=== PATIENT | female | born 1965 | race Caucasian/White ===

== ENCOUNTER 2016-04-25 21:19 | Inpatient (IN) | payer OTHER ==
[~2016-04-25] VITALS: Ht 165.1 cm; Wt 72.2 kg
[~2016-04-25 21:19] MED LIST: ACETAMINOPHEN W1 TA6 PO; AMOXICILLIN 50500 MG PO; BACTRIM DS 8001 TAB PO; CEFTIN PO; CEPHALEXIN500 M1 PO; CITALOPRAM40 MG PO; L-LYSINE1000 MG PO; LEXAPRO 10MG10 MG PO; LEXAPRO20 MG PO; LORTAB 5/500 501 TAB PO; LYSINYL500 MG PO; MIRTAZAPINE7.5 MG PO; MOTRIN 800800 MG/TAB PO; NASONEX SPRAY17 GM NS; NO HOME MEDICATIONS; NORCO 325 MG-7.1 TAB PO; PHENERGAN 25 TA25 MG PO; PHENERGAN W/CO120 ML PO; PHENERGAN25 MG RC; PREMARIN .3MG0.3 MG PO; PROVENTIL0.09 MG/A1 IH; TYLENOL 500MG500 MG PO; VALTREX 50500 MG/TAB PO; ZITHROMAX Z PA250 MG PO; ZYRTEC 10MG10 MG PO; [UNRECOGNIZED DRUG - OTHER]
[2016-04-25 22:02] VITALS: BP 111/59; PULSE 76; TEMP 98.4
[2016-04-25] MEDS ORDERED: CELEXA40 MG PO (22:16)
[2016-04-25] MEDS ORDERED: ZANTAC 7575 MG PO (22:17)
[2016-04-25] MEDS ORDERED: ASPIRIN E.C. 8181 MG PO (22:17)
[2016-04-25] MEDS ORDERED: VALTREX 50500 MG/TAB PO (22:18)
[2016-04-25] MEDS ORDERED: RESTORIL 77.5 MG/CAP (22:18)
[2016-04-25] MEDS ORDERED: CLARITIN 1010 MG/TAB PO (22:18)
[2016-04-25] MEDS ORDERED: MELAT3MGTAB (22:31)
[2016-04-26 00:36] LABS: B-TYPE NATRIURETIC PEPTIDE 98 pg/mL (0-125)
[2016-04-26 03:33] VITALS: BP 97/45; PULSE 81; TEMP 98.2
[2016-04-26 08:30] LABS: BASO % 0.4 % (0.0-2.0); EOS # 0.1 (0.0-0.7); GRAN # 2.4 (1.4-6.5); GRAN % 44.4 % (42.2-75.2); HEMOGLOBIN 12.5 g/dl (12.5-16.0); LYMPH # 2.3 (1.2-3.4); LYMPH % 42.9 % (20.0-51.0); MEAN CELL VOLUME 91 fl (80.0-100.0); MEAN CORPUSCULAR HEMOGLOBIN 31 pg (27.0-31.0); MEAN CORPUSCULAR HGB CONC 34 g/dl (33.0-37.0); MEAN PLATELET VOLUME 10.2 fl (7.4-10.4); MONO # 0.6 (0.1-0.6); MONO % 10.1 % (1.7-9.3); PLATELET COUNT 206 K/mm3 (130-400); RED BLOOD COUNT 4.05 M/mm3 (4.10-5.30); REDCELL DISTRIBUTION WIDTH-CV 11.9 % (11.5-14.5); WHITE BLOOD COUNT 5.5 K/mm3 (4.8-10.8)
[2016-04-26 08:56] VITALS: BP 104/50; PULSE 85; TEMP 97.6
[2016-04-26 09:08] LABS: ANION GAP 8 mmol/L (7-16); BLOOD UREA NITROGEN 11 mg/dL (7-17); C-REACTIVE PROTEIN 0.6 mg/dL (0.0-0.9); CALCIUM 9.8 mg/dL (8.4-10.2); CARBON DIOXIDE 30 mmol/L (22-30); CHLORIDE 104 mmol/L (98-107); GLUCOSE 91 mg/dL (74-106); POTASSIUM 3.7 mmol/L (3.4-5.0); SODIUM 141 mmol/L (137-145)
[2016-04-26 09:25] LABS: TROPONIN-I < 0.012 ng/mL (0.000-0.034)
[2016-04-26 09:48] LABS: CHOLESTEROL 189 mg/dL (120-200); HDL CHOLESTEROL 41 mg/dL; LDL CHOLESTEROL 119 mg/dL; TRIGLYCERIDE 147 mg/dL
[2016-04-26 09:50] LABS: ERYTHROCYTE SEDIMENTATION RATE 16 mm/hr (0-30)
[2016-04-26 17:25] VITALS: BP 104/46; PULSE 95
[2016-04-26 19:51] VITALS: BP 95/45; PULSE 95; TEMP 98.4
[2016-04-26 22:49] VITALS: BP 94/44; PULSE 87; TEMP 98.4
[2016-04-27 03:30] VITALS: BP 102/45; PULSE 78; TEMP 98.2
[2016-04-27 07:37] VITALS: BP 91/33; PULSE 90; TEMP 98.4
[2016-04-27 08:58] LABS: FACTOR V LEIDEN MUTATION B Negative (Negative)
[2016-04-27] MEDS ORDERED: PLAVIX 75MG TAB75 MG PO (10:51)
[2016-04-27] MEDS ORDERED: LIPITOR 40MG TA40 MG PO (11:00)
[2016-04-27] MEDS ORDERED: AMITRIPTYLINE H25 M1 PO (11:01)
[2016-04-27 23:01] LABS: ANA SCREEN with REFLEX Negative (Negative)
[2016-04-29] MEDS ORDERED: PLAVIX 75MG TAB75 MG PO (15:48)
[2016-04-29] MEDS ORDERED: LIPITOR 40MG TA40 MG PO (15:48)
== END 2016-04-27 15:07 | disposition home or self-care (01) | DRG 103 ==
LOC: MEDICAL 21:19
PROVIDERS: Internal Medicine
DX: G43.409 Hemiplegic migraine, not intractable, without status migrainosus (principal); R07.89 Other chest pain; E78.5 Hyperlipidemia, unspecified; Z86.73 Personal history of transient ischemic attack (TIA), and cerebral infarction without residual deficits; Z87.891 Personal history of nicotine dependence
CPT/HCPCS: 99232-AI; 99239; A4315; J1650

== ENCOUNTER 2016-12-01 07:58 | Outpatient (CLI) | payer OTHER ==
[~2016-12-01] VITALS: Ht 165.1 cm; Wt 71.8 kg
[~2016-12-01 07:58] MED LIST changes: +AMITRIPTYLINE H25 M1 PO; +ASPIRIN E.C. 8181 MG PO; +CELEXA40 MG PO; +CLARITIN 1010 MG/TAB PO; +LIPITOR 40MG TA40 MG PO; +MELAT3MGTAB; +PLAVIX 75MG TAB75 MG PO; +RESTORIL30 MG PO; +ZANTAC 150MG T150 MG PO
[2016-12-01] MEDS ORDERED: LIPITOR 10MG10 MG PO (08:13)
[2016-12-01] MEDS ORDERED: PLAVIX 75MG TAB75 MG PO (08:13)
[2016-12-01] MEDS ORDERED: ZANAFLEX2 MG PO (08:14)
[2016-12-01 08:20] VITALS: BP 107/65; PULSE 75; TEMP 97.9
== END 2016-12-01 09:59 | disposition home or self-care (01) ==
LOC: EUO 07:58
DX: E78.00 Pure hypercholesterolemia, unspecified (principal); R55 Syncope and collapse; Z86.73 Personal history of transient ischemic attack (TIA), and cerebral infarction without residual deficits; Z87.891 Personal history of nicotine dependence
CPT/HCPCS: 27124; C1764

== ENCOUNTER → 2020-02-10 | Outpatient (CLI) | payer OTHER ==
[~2020-02-10] MED LIST changes: +LIPITOR 10MG10 MG PO; +ZANAFLEX2 MG PO
== END ==
LOC: COL.RAD 09:19
DX: K21.9 Gastro-esophageal reflux disease without esophagitis (principal); R19.7 Diarrhea, unspecified; R10.11 Right upper quadrant pain
CPT/HCPCS: A9537; J2805

== ENCOUNTER → 2020-12-08 | Outpatient (CLI) | payer OTHER | LOC: MHCPAIN 13:01 | DX: M47.817 Spondylosis without myelopathy or radiculopathy, lumbosacral region (principal); M54.5 Low back pain; M53.3 Sacrococcygeal disorders, not elsewhere classified | CPT/HCPCS: G0463 ==

== ENCOUNTER → 2021-01-14 | Outpatient (CLI) | payer OTHER | LOC: MHCPAIN 12-17 15:15 | DX: M47.817 Spondylosis without myelopathy or radiculopathy, lumbosacral region (principal); M54.50 Low back pain, unspecified; M53.3 Sacrococcygeal disorders, not elsewhere classified | CPT/HCPCS: G0463 ==

== ENCOUNTER → 2021-02-02 | Outpatient (CLI) | payer OTHER | LOC: MHCPAIN 13:42 | DX: M47.817 Spondylosis without myelopathy or radiculopathy, lumbosacral region (principal); M53.3 Sacrococcygeal disorders, not elsewhere classified; G89.29 Other chronic pain | CPT/HCPCS: G0463 ==

== ENCOUNTER 2022-04-26 07:12 | Day surgery (SDC) | payer OTHER ==
[2022-04-26] VITALS (8 sets, daily range): BP systolic 103–134; BP diastolic 56–84; PULSE 67–75; TEMP 98.2
[~2022-04-26] VITALS: Ht 162.7 cm; Wt 68.4 kg
[2022-04-26] MEDS ORDERED: BUSPAR DIVIDOSE15 MG PO (07:48)
[2022-04-26] MEDS ORDERED: PROTONIX 40MG T40 MG PO (07:48)
[2022-04-26] MEDS ORDERED: COLACE 100100 MG/CAP PO (07:50)
[2022-04-26] MEDS ORDERED: ALLEGRA 180MG180 MG PO (07:50)
[2022-04-26] MEDS ORDERED: FLEXERIL 1010 MG/TAB PO (07:58)
--- NOTE | 2022-04-26 09:12 | NUR ---
Initial visit; Patient requested prayer prior to her surgical procedure. Roller Cleaner offered comfort and encouragement to Mera who moved to [place] from [place]. Patient thanked Roller Cleaner for also offering prayer prior to her surgical procedure.
--- NOTE | 2022-04-26 09:20 | NUR ---
SEE MERGE FOR PROCEDURE, MEDICATIONS, VITAL SIGNS, AND EQUIPMENT
--- NOTE | 2022-04-26 09:45 | NUR ---
PT BACK FROM PROCEDURE. ALERT AND ORIENTED. DOES NOT WANT ANY SNACKS AT THIS TIME
--- NOTE | 2022-04-26 11:30 | NUR ---
DISCHARGE INSTRUCTIONS REVIEWED. PT STATES UNDERSTANDING. PT DRESSED. IV REMOVED. PT ROLLED DOWN TO PT ENTRANCE. BOYFRIEND DRIVING HER HOME.
== END 2022-04-26 11:30 | disposition home or self-care (01) ==
LOC: COL.CAR 07:12
DX: Z45.09 Encounter for adjustment and management of other cardiac device (principal); R55 Syncope and collapse
CPT/HCPCS: J2250; J3010